=== PATIENT | female | born 1960 | race Caucasian/White ===

== ENCOUNTER 2023-02-18 16:05 | Emergency (ER) | payer OTHER ==
[~2023-02-18] VITALS: Ht 167.6 cm; Wt 68.0 kg
[2023-02-18 17:36] VITALS: PULSE 72; RESP 11; O2SAT 90
[2023-02-18] MEDS ORDERED: ACETAMINOPHEN 325 MG TAB PO ONE ×2 (19:00→19:06)
[2023-02-18 19:37] VITALS: BP 108/49; PULSE 55; RESP 13; O2SAT 92
== END 2023-02-18 20:43 | disposition home or self-care (01) ==
LOC: ER 16:05 → EDBD 16:05 → ER 20:00
DX: S05.12XA Contusion of eyeball and orbital tissues, left eye, initial encounter (principal); F10.129 Alcohol abuse with intoxication, unspecified; R41.0 Disorientation, unspecified; W18.39XA Other fall on same level, initial encounter; Y93.89 Activity, other specified; Y92.89 Other specified places as the place of occurrence of the external cause; Y99.8 Other external cause status; Y90.8 Blood alcohol level of 240 mg/100 ml or more
CPT/HCPCS: 70450; 70486; 72125